=== PATIENT | female | born 1930 | race African-American/Black ===

== ENCOUNTER 2016-08-18 14:21 | Inpatient (IN) | payer MEDICARE, MEDICAID ==
[2016-08-18] MEDS ORDERED: DILTIAZEM HCL/D5W 125 MG/125 ML RTUINJ IV ONE (14:53)
[2016-08-18 15:34] LABS: HEMATOCRIT 33.8 % (36.0-47.0); HEMOGLOBIN 10.5 g/dL (12.0-15.5); HGB HCT DIFFERENCE -2.3; MEAN CORPUSCULAR HEMOGLOBIN 20.7 pg (27.0-33.4); MEAN CORPUSCULAR HGB CONC 30.9 g/dL (32.0-36.0); MEAN CORPUSCULAR VOLUME 67 fl (80-97); RED BLOOD COUNT 5.05 10^6/uL (3.72-5.28); RED CELL DISTRIBUTION WIDTH 16.1 % (11.5-14.0); WHITE BLOOD COUNT 4.8 10^3/uL (4.0-10.5)
[2016-08-18 15:48] LABS: ALANINE AMINOTRANSFERASE 19 U/L (9-52); ALBUMIN 4.1 g/dL (3.5-5.0); ALKALINE PHOSPHATASE 100 U/L (38-126); ANION GAP 13 (5-19); ASPARTATE AMINO TRANSFERASE 21 U/L (14-36); BILIRUBIN,DIRECT 0.2 mg/dL (0.0-0.4); BILIRUBIN,TOTAL 0.8 mg/dL (0.2-1.3); BLOOD UREA NITROGEN 21 mg/dL (7-20); CALCIUM 9.7 mg/dL (8.4-10.2); CARBON DIOXIDE 30 mmol/L (22-30); CHLORIDE 100 mmol/L (98-107); CREATININE RESULT 1.38 mg/dL (0.52-1.25); GLUCOSE 142 mg/dL (75-110); POTASSIUM 3.8 mmol/L (3.6-5.0); SODIUM 143.3 mmol/L (137-145); TOTAL PROTEIN 7.9 g/dL (6.3-8.2)
[2016-08-18 16:22] LABS: THYROID STIMULATING HORMONE < 0.02 uIU/mL (0.47-4.68)
[2016-08-18] MEDS ORDERED: DILTIAZEM HCL/D5W 125 MG/125 ML RTUINJ IV PRN (16:41)
[2016-08-18] MEDS ORDERED: MAGNESIUM SULFATE/D5W 100 ML IV ONE (18:30)
--- NOTE | 2016-08-18 19:28 | XCELERA REPORT ---
[address] [address] Transthoracic Echocardiogram Report Name: PILLO NORWOOD Age: 85 yrs Gender: Female : 1930 Patient Status: Inpatient Patient Location: [id number]\S\309\S\A Study Date: 08/18/2016 04:21 PM Height: 63 in Weight: 125 lb BSA: 1.6 m2 Procedure: A complete two-dimensional transthoracic echocardiogram was performed (2D, M-mode, spectral and color flow Doppler). The study was technically adequate with some images being suboptimal in quality. Reason For Study: new onset afib with RVR Ordering Physician: OLAYINKA WISEMAN Performed By: Sunshine Brioens Interpretation Summary Left ventricular systolic function is normal. There is borderline concentric left ventricular hypertrophy. The left ventricle is grossly normal size. Wall motion cannot be accurately commented on, but no definite regional wall motion abnormalities noted. The right ventricle is mildly dilated. The right ventricular systolic function is normal. The left atrium is borderline dilated. The right atrium is mildly dilated. There is no mitral valve stenosis. There is a mild to moderate amount of mitral regurgitation There is no aortic valve stenosis There is a mild amount of aortic regurgitation There is a mild to moderate amount of tricuspid regurgitation There is mild to moderate pulmonary hypertension by echo Right ventricular systolic pressure is estimated to be elevated at 40- 50mmHg. There is no pericardial effusion. MMode/2D Measurements \T\ Calculations RVDd: 2.9 cm LVIDd: 3.7 cm FS: 36.3 % Ao root diam: 2.8 cm IVSd: 1.00 cm LVIDs: 2.4 cm EDV(Teich): 59.0 ml LVPWd: 0.96 cm ESV(Teich): 19.6 ml Ao root area: 6.0 cm2 EF(Teich): 66.8 % LA dimension: 2.8 cm Doppler Measurements \T\ Calculations MV E max donna: MV P1/2t max donna: Ao V2 max: AI max donna: 124.9 cm/sec 124.9 cm/sec 119.4 cm/sec 476.6 cm/sec MV A max donna: MV P1/2t: 51.1 msec Ao max PG: AI max P.8 cm/sec 5.7 mmHg 90.9 mmHg MV E/A: 2.2 MVA(P1/2t): 4.3 cm2 AI dec slope: MV dec slope: 715.2 cm/sec2 304.2 cm/sec2 MV dec time: AI P1/2t: 0.18 sec 458.8 msec LV V1 max PG: PA V2 max: PI end-d donna: TR max donna: 4.8 mmHg 87.4 cm/sec 133.0 cm/sec 333.0 cm/sec LV V1 max: PA max P.1 mmHg TR max P.1 cm/sec 44.4 mmHg Left Ventricle The left ventricle is grossly normal size. There is borderline concentric left ventricular hypertrophy. Left ventricular systolic function is normal. LV diastolic function could not be adequately assessed due to atrial fibrilation. Wall motion cannot be accurately commented on, but no definite regional wall motion abnormalities noted. Right Ventricle The right ventricle is mildly dilated. There is normal right ventricular wall thickness. The right ventricular systolic function is normal. Atria The right atrium is mildly dilated. The left atrium is borderline dilated. Interarterial septum not well visualized and not well dopplered. Cannot comment on ASD/PFO presence. Mitral Valve The mitral valve leaflets are sclerotic, but show no functional abnormalities. There is no mitral valve stenosis. There is a mild to moderate amount of mitral regurgitation. Aortic Valve The aortic valve is not well visualized secondary to technical limitations. There is no aortic valve stenosis. There is a mild amount of aortic regurgitation. Tricuspid Valve The tricuspid valve is not well visualized, but is grossly normal. There is no tricuspid stenosis. There is a mild to moderate amount of tricuspid regurgitation. There is mild to moderate pulmonary hypertension by echo. Right ventricular systolic pressure is estimated to be elevated at 40- 50mmHg. Pulmonic Valve The pulmonic valve is not well visualized. There is a mild amount of pulmonic regurgitation. Great Vessels The aortic root is not well visualized. The inferior vena cava appeared normal and decreased > 50% with respiration (RAP 5-10 mmHg). Effusions There is no pericardial effusion. : OLAYINKA WISEMAN > Benji Granados
--- NOTE | 2016-08-18 19:35 | EKG REPORT ---
SEVERITY:- ABNORMAL ECG - ATRIAL FIBRILLATION, V-RATE [id number] : Confirmed by: Benji Granados 18-Aug-2016 19:35:05
[2016-08-18] MEDS ORDERED: ALBUTEROL SULFATE HFA (90 MCG/PUFF) 8 GM MDI (1 MDI/ER DISP) IH PRN (19:42)
[2016-08-18] MEDS ORDERED: LEVOTHYROXINE SODIUM 137 MCG PO SCH (19:45)
[2016-08-18] MEDS ORDERED: (PENDING PHARMACY ID) (Losartan/Hydrochlorothiazide [Hyzaar 100-25 Tablet] 1 TAB) PO SCH (19:45)
[2016-08-18] MEDS ORDERED: ALBUTEROL SULFATE HFA (90 MCG/PUFF) 200 PUFF/8.5 GM MDI IH PRN (19:51)
--- NOTE | 2016-08-18 19:54 | PDOC H&P ---
History of Present Illness Admission Date/PCP: 08/18/16 14:21 OLAYINKA WISEMAN MD History of Present Illness: PILLO NORWOOD is a 85 year old female, she has a history of hypertension, chronic kidney disease stage III, history of right nephrectomy from a lesion on that return to vendor to be a benign lesion. She came to the office today for follow- up and on evaluation she was found to be in atrial fibrillation with rapid ventricular response, she was admitted directly from the office into the hospital for management. The 12-lead EKG that was done in the office showed atrial fibrillation with RVR this was also confirmed in the hospital she was started on Cardizem infusion with spontaneous conversion to sinus rhythm. This suggests that the atrial fibrillation is paroxysmal in nature, a 2D echo was done, it showed preserved ejection fraction of the left ventricle, the left atrium size is normal and that was also aortic valve regurgitation. The judith S2 score for this patient is 2, she has a history of hypertension ,she is over 75 years old she has no history of diabetes mellitus , no history of stroke she has no history of CHF ,she will need anticoagulant on a long-term basis to prevent stroke. Past Medical History Cardiac Medical History: Reports: Hypertension, Other - Paroxysmal atrial fibrillation Psychiatric Medical History: Denies: Depression Past Surgical History Past Surgical History: Reports: Other - Right nephrectomy Social History Smoking Status: Never Smoker Frequency of Alcohol Use: None Hx Recreational Drug Use: No Drugs: None Hx Prescription Drug Abuse: No Family History Parental Family History Reviewed: Yes Children Family History Reviewed: Yes Sibling(s) Family History Reviewed.: Yes Medication/Allergy Home Medications: Albuterol Sulfate [Proair HFA] 2 puff IH Q4HP PRN 08/18/16 Amlodipine Besylate [Norvasc 10 mg Tablet] 10 mg PO DAILY 08/18/16 Aspirin [Ecotrin] 81 mg PO DAILY 08/18/16 Budesonide/Formoterol Fumarate [Symbicort Hfa 160-4.5 Mcg Inhaler 6 gm] 2 puff IH Q12 08/18/16 Levothyroxine Sodium [Tirosint] 137 mcg PO QAM 08/18/16 Losartan/Hydrochlorothiazide [Hyzaar 100-25 Tablet] 1 tab PO DAILY 08/18/16 Metoprolol Tartrate [Lopressor 100 mg Tablet] 100 mg PO Q12 08/18/16 Allergies/Adverse Reactions: No Known Allergies Allergy (Unverified 08/18/16 14:58) Review of Systems Constitutional: ABSENT: chills, fever(s), headache(s), weight gain, weight loss Eyes: ABSENT: visual disturbances Ears: ABSENT: hearing changes Cardiovascular: PRESENT: palpitations. ABSENT: as per HPI, chest pain, dyspnea on exertion, edema, orthropnea, other Respiratory: ABSENT: cough, hemoptysis Gastrointestinal: ABSENT: abdominal pain, constipation, diarrhea, hematemesis, hematochezia, nausea, vomiting Genitourinary: ABSENT: dysuria, hematuria Musculoskeletal: ABSENT: joint swelling Integumentary: ABSENT: rash, wounds Neurological: ABSENT: abnormal gait, abnormal speech, confusion, dizziness, focal weakness, syncope Psychiatric: ABSENT: anxiety, depression, homidical ideation, suicidal ideation Endocrine: ABSENT: cold intolerance, heat intolerance, menstrual abnormalities, polydipsia, polyuria Hematologic/Lymphatic: ABSENT: easy bleeding, easy bruising, lymphadenopathy Physical Exam Vital Signs: Temp Pulse Resp BP Pulse Ox 98.9 F 74 132/64 H 100 08/18/16 15:03 08/18/16 18:30 08/18/16 18:31 08/18/16 15:03 Intake & Output 08/17/16 08/18/16 08/19/16 06:59 06:59 06:59 Intake Total 397 Balance 397 Weight 59.3 kg General appearance: PRESENT: no acute distress, well-developed, well-nourished Head exam: PRESENT: atraumatic, normocephalic Eye exam: PRESENT: conjunctiva pink, EOMI, PERRLA. ABSENT: scleral icterus Ear exam: PRESENT: normal external ear exam Mouth exam: PRESENT: moist, tongue midline Neck exam: PRESENT: full ROM. ABSENT: carotid bruit, JVD, lymphadenopathy, thyromegaly Respiratory exam: PRESENT: clear to auscultation meek Cardiovascular exam: PRESENT: irregular rhythm, RRR, +S1, +S2. ABSENT: diastolic murmur, rubs, systolic murmur Pulses: PRESENT: normal dorsalis pedis pul, +2 pedal pulses bilateral Vascular exam: PRESENT: normal capillary refill GI/Abdominal exam: PRESENT: normal bowel sounds, soft. ABSENT: distended, guarding, mass, organolmegaly, rebound, tenderness Rectal exam: PRESENT: deferred Neurological exam: PRESENT: alert, awake, oriented to person, oriented to place , oriented to time, oriented to situation, CN II-XII grossly intact. ABSENT: motor sensory deficit Psychiatric exam: PRESENT: appropriate affect, normal mood Skin exam: PRESENT: dry, intact, warm Results Laboratory Results: 08/18/16 15:12 08/18/16 15:12 08/18/16 08/18/16 08/18/16 15:12 15:12 15:12 WBC 4.8 RBC 5.05 Hgb 10.5 L Hct 33.8 L MCV 67 L MCH 20.7 L MCHC 30.9 L RDW 16.1 H Plt Count 182 Sodium 143.3 Potassium 3.8 Chloride 100 Carbon Dioxide 30 Anion Gap 13 BUN 21 H Creatinine 1.38 H Est GFR ( Amer) 44 L Est GFR (Non-Af Amer) 36 L Glucose 142 H Calcium 9.7 Magnesium Total Bilirubin 0.8 AST 21 ALT 19 Alkaline Phosphatase 100 Total Protein 7.9 Albumin 4.1 TSH < 0.02 L Free T4 1.70 08/18/16 15:12 WBC RBC Hgb Hct MCV MCH MCHC RDW Plt Count Sodium Potassium Chloride Carbon Dioxide Anion Gap BUN Creatinine Est GFR ( Amer) Est GFR (Non-Af Amer) Glucose Calcium Magnesium 1.5 L Total Bilirubin AST ALT Alkaline Phosphatase Total Protein Albumin TSH Free T4 Impressions: Chest X-Ray 08/18/16 00:00 IMPRESSION: NO ACUTE RADIOGRAPHIC FINDING IN THE CHEST. Assessment & Plan - Diagnosis (1) Paroxysmal atrial fibrillation with rapid ventricular response Is this a current diagnosis for this admission?: YesPlan: Patient was on beta-alexandrea and despite that she still had paroxysmal atrial fibrillation with rapid irregular response she was admitted directly from the office and she was started on Cardizem infusion she was also found to have hypomagnesemia she has CHADS2 score of 2 she will be started on anticoagulant with Eliquis (2) Microcytic anemia Is this a current diagnosis for this admission?: YesPlan: iron indices ordered (3) Essential hypertension Is this a current diagnosis for this admission?: Yes (4) Chronic kidney disease, stage III (moderate) Is this a current diagnosis for this admission?: Yes
[2016-08-18] MEDS ORDERED: METOPROLOL TARTRATE 100 MG TABLET PO ONE (20:00)
[2016-08-18] MEDS ORDERED: AMLODIPINE BESYLATE 10 MG TABLET PO ONE (20:00)
[2016-08-18] MEDS ORDERED: APIXABAN 2.5 MG TABLET PO ONE (20:00)
[2016-08-18] MEDS ORDERED: HYDROCHLOROTHIAZIDE 25 MG TABLET PO ONE (20:30)
[2016-08-18] MEDS ORDERED: LOSARTAN POTASSIUM 50 MG TABLET PO ONE (20:30)
[2016-08-18 20:32] LABS: MAGNESIUM 2.1 mg/dL (1.6-2.3)
[2016-08-18 21:40] LABS: FOLATE 9.77 ng/mL (>2.76)
[2016-08-18] MEDS ORDERED: HEPARIN SOD (PORCINE) 5,000 UNIT/ML 1 ML SYRINGE SUBCUT SCH (22:00)
[2016-08-18] MEDS ORDERED: BUDESONIDE/FORMOTEROL 160-4.5 MCG 60 PUFF/6 GM MDI IH SCH (22:00)
[2016-08-19 06:54] LABS: APPEARANCE,URINE CLEAR; BILIRUBIN,URINE NEGATIVE (NEGATIVE); GLUCOSE, URINE NEGATIVE (NEGATIVE); KETONES,URINE NEGATIVE (NEGATIVE); LEUKOCYTE ESTERASE,URINE TRACE (NEGATIVE); NITRITE,URINE NEGATIVE (NEGATIVE); PROTEIN,URINE NEGATIVE (NEGATIVE); URINE SPECIFIC GRAVITY 1.008; UROBILINOGEN,URINE NEGATIVE mg/dL (<2.0)
[2016-08-19] MEDS ORDERED: LEVOTHYROXINE SODIUM 0.025 MG TABLET PO SCH (08:00)
[2016-08-19] MEDS ORDERED: LEVOTHYROXINE SODIUM 0.112 MG TABLET PO SCH (08:00)
[2016-08-19] MEDS ORDERED: AMLODIPINE BESYLATE 10 MG TABLET PO SCH (10:00)
[2016-08-19] MEDS ORDERED: METOPROLOL TARTRATE 100 MG TABLET PO SCH (10:00)
[2016-08-19] MEDS ORDERED: LOSARTAN POTASSIUM 50 MG TABLET PO SCH (10:00)
[2016-08-19] MEDS ORDERED: HYDROCHLOROTHIAZIDE 25 MG TABLET PO SCH (10:00)
[2016-08-19] MEDS ORDERED: APIXABAN 2.5 MG TABLET PO SCH (10:00)
[2016-08-19 12:48] VITALS: BP 138/61
[2016-08-19] MEDS ORDERED: IRON SUCROSE COMPLEX INJ/PF 100 MG/5 ML SDV IV ONE (13:00)
--- NOTE | 2016-08-19 15:41 | PDOC DISCHARGE SUMMARY ---
General - Admit/Disc Date/PCP Admission Date/Primary Care Provider: 08/18/16 14:21 OLAYINKA WISEMAN MD Discharge Date: 08/19/16 - Discharge Diagnosis (1) Paroxysmal atrial fibrillation with rapid ventricular response Is this a current diagnosis for this admission?: Yes (2) Microcytic anemia Is this a current diagnosis for this admission?: Yes (3) Essential hypertension Is this a current diagnosis for this admission?: Yes (4) Chronic kidney disease, stage III (moderate) Is this a current diagnosis for this admission?: Yes (5) Iron deficiency anemia Is this a current diagnosis for this admission?: Yes - Additional Information Discharge Diet: As Tolerated Discharge Activity: Activity As Tolerated Home Medications: Albuterol Sulfate [Proair HFA] 2 puff IH Q4HP PRN 08/18/16 Amlodipine Besylate [Norvasc 10 mg Tablet] 10 mg PO DAILY 08/18/16 Budesonide/Formoterol Fumarate [Symbicort HFA 160-4.5 mcg Inhaler 6 gm] 2 puff IH Q12 08/18/16 Losartan/Hydrochlorothiazide [Hyzaar 100-25 Tablet] 1 tab PO DAILY 08/18/16 Metoprolol Tartrate [Lopressor 100 mg Tablet] 100 mg PO Q12 08/18/16 Apixaban [Eliquis 2.5 mg Tablet] 2.5 mg PO BID #60 tablet 08/19/16 Levothyroxine Sodium 100 mcg PO DAILY #90 tablet 08/19/16 History of Present Illness History of Present Illness: PILLO NORWOOD is a 85 year old female, she has a history of hypertension, chronic kidney disease stage III, history of right nephrectomy from a lesion on that glove turner and former automatic to be a benign lesion. She came to the office today for follow- up and on evaluation she was found to be in atrial fibrillation with rapid ventricular response, she was admitted directly from the office into the hospital for management. The 12-lead EKG that was done in the office showed atrial fibrillation with RVR this was also confirmed in the hospital she was started on Cardizem infusion with spontaneous conversion to sinus rhythm. This suggests that the atrial fibrillation is paroxysmal in nature, a 2D echo was done, it showed preserved ejection fraction of the left ventricle, the left atrium size is normal and that was also aortic valve regurgitation. The judith S2 score for this patient is 2, she has a history of hypertension ,she is over 73 years old she has no history of diabetes mellitus , no history of stroke she has no history of CHF ,she will need anticoagulant on a long-term basis to prevent stroke. Hospital Course Hospital Course: She was admitted yesterday when she came to the office and she was found to have paroxysmal atrial fibrillation with rapid ventricular response, she was treated with IV Cardizem and there was spontaneous conversion to sinus rhythm. The CHADS2 score was 2 she was started on Eliquis, anticoagulant, 2D echo was done he showed normal-sized left atrium, there was preserved ejection fraction of left ventricle also found was aortic valve regurgitation she also found to have microcytic anemia with a low serum iron and she was given IV Venofer, the thyroid function tests suggest excessive levothyroxine replacement therapy, she has history of hypothyroidism, she takes levothyroxine 137 MCG p.o. daily this was adjusted down to 100 g daily Physical Exam Vital Signs: Temp Pulse Resp BP Pulse Ox 97.4 F 65 19 138/61 H 100 08/19/16 11:27 08/19/16 11:27 08/19/16 11:27 08/19/16 11:27 08/19/16 11:27 Intake & Output 08/18/16 08/19/16 08/20/16 06:59 06:59 06:59 Intake Total 547 118 Balance 547 118 Weight 60.7 kg General appearance: PRESENT: no acute distress, well-developed, well-nourished Head exam: PRESENT: atraumatic, normocephalic Eye exam: PRESENT: conjunctiva pink, EOMI, PERRLA Ear exam: PRESENT: normal external ear exam Mouth exam: PRESENT: moist, tongue midline Neck exam: PRESENT: full ROM Respiratory exam: PRESENT: clear to auscultation meek Cardiovascular exam: PRESENT: RRR, +S1, +S2 Pulses: PRESENT: normal dorsalis pedis pul, +2 pedal pulses bilateral Vascular exam: PRESENT: normal capillary refill GI/Abdominal exam: PRESENT: normal bowel sounds, soft Rectal exam: PRESENT: deferred Neurological exam: PRESENT: alert, awake, oriented to person, oriented to place , oriented to time, oriented to situation, CN II-XII grossly intact Psychiatric exam: PRESENT: appropriate affect, normal mood Skin exam: PRESENT: dry, intact, warm Results Laboratory Results: 04/28/17 15:12 08/18/16 15:12 08/18/16 08/18/16 08/18/16 15:12 15:12 15:12 WBC 4.8 RBC 5.05 Hgb 10.5 L Hct 33.8 L MCV 67 L MCH 20.7 L MCHC 30.9 L RDW 16.1 H Plt Count 182 Retic Count (auto) Absolute Retic Sodium 143.3 Potassium 3.8 Chloride 100 Carbon Dioxide 30 Anion Gap 13 BUN 21 H Creatinine 1.38 H Est GFR ( Amer) 44 L Est GFR (Non-Af Amer) 36 L Glucose 142 H Calcium 9.7 Magnesium Iron TIBC % Saturation Ferritin Total Bilirubin 0.8 AST 21 ALT 19 Alkaline Phosphatase 100 Total Protein 7.9 Albumin 4.1 Vitamin B12 Folate TSH < 0.02 L Free T4 1.70 Urine Color Urine Appearance Urine pH Ur Specific [place] Urine Protein Urine Glucose (UA) Urine Ketones Urine Blood Urine Nitrite Ur Leukocyte Esterase Urine WBC (Auto) Urine RBC (Auto) 08/18/16 08/18/16 08/18/16 15:12 20:00 20:00 WBC RBC Hgb Hct MCV MCH MCHC RDW Plt Count Retic Count (auto) 1.91 Absolute Retic 0.094 Sodium Potassium Chloride Carbon Dioxide Anion Gap BUN Creatinine Est GFR ( Amer) Est GFR (Non-Af Amer) Glucose Calcium Magnesium 1.5 L 2.1 Iron 22.0 L TIBC 238 L % Saturation 9 Ferritin 253.00 Total Bilirubin AST ALT Alkaline Phosphatase Total Protein Albumin Vitamin B12 > 1000.0 H Folate 9.77 TSH Free T4 Urine Color Urine Appearance Urine pH Ur Specific [place] Urine Protein Urine Glucose (UA) Urine Ketones Urine Blood Urine Nitrite Ur Leukocyte Esterase Urine WBC (Auto) Urine RBC (Auto) 08/19/16 06:22 WBC RBC Hgb Hct MCV MCH MCHC RDW Plt Count Retic Count (auto) Absolute Retic Sodium Potassium Chloride Carbon Dioxide Anion Gap BUN Creatinine Est GFR ( Amer) Est GFR (Non-Af Amer) Glucose Calcium Magnesium Iron TIBC % Saturation Ferritin Total Bilirubin AST ALT Alkaline Phosphatase Total Protein Albumin Vitamin B12 Folate TSH Free T4 Urine Color STRAW Urine Appearance CLEAR Urine pH 8.0 Ur Specific [place] 1.008 Urine Protein NEGATIVE Urine Glucose (UA) NEGATIVE Urine Ketones NEGATIVE Urine Blood NEGATIVE Urine Nitrite NEGATIVE Ur Leukocyte Esterase TRACE H Urine WBC (Auto) 3 Urine RBC (Auto) 0 Impressions: Chest X-Ray 08/18/16 00:00 IMPRESSION: NO ACUTE RADIOGRAPHIC FINDING IN THE CHEST.
== END 2016-08-19 16:15 | disposition home or self-care (01) | DRG 310 ==
LOC: 3N 14:21
PROVIDERS: ADMIT Internal Medicine; ATTEND Internal Medicine
DX: I48.0 Paroxysmal atrial fibrillation (principal); I12.9 Hypertensive chronic kidney disease with stage 1 through stage 4 chronic kidney disease, or unspecified chronic kidney disease; N18.3 Chronic kidney disease, stage 3 (moderate); E03.9 Hypothyroidism, unspecified; D50.9 Iron deficiency anemia, unspecified; Z90.5 Acquired absence of kidney; Z79.01 Long term (current) use of anticoagulants; Z79.899 Other long term (current) drug therapy; Z79.82 Long term (current) use of aspirin
CPT/HCPCS: 36415; 71010; 80048; 80076; 81001; 82607; 82728; 82746; 83540; 83550; 83735; 84439; 84443; 84466; 85027; 85045; 87086; 93005; 93010; 93306; J3475; J3490

== ENCOUNTER → 2018-05-17 | Outpatient (CLI) | payer MEDICARE, MEDICAID | LOC: OD 11:18 | PROVIDERS: ATTEND Podiatrist Foot Surgery | DX: M10.072 Idiopathic gout, left ankle and foot (principal) | CPT/HCPCS: 36415; 84550 ==